=== PATIENT | female | born 1985 | race Caucasian/White ===

== ENCOUNTER 2017-11-17 07:52 | Outpatient (CLI) ==
[2015-10-31 01:04] VITALS: BMI 35.9
== END 2017-11-17 07:53 | disposition home or self-care (01) ==
LOC: LAB 07:52
PROVIDERS: ATTEND Physician Assistant Medical
DX: T56.891A Toxic effect of other metals, accidental (unintentional), initial encounter (principal)
CPT/HCPCS: 36415; 82175; 82570; 83655; 83825